=== PATIENT | male | born 1975 | race African-American/Black ===

== ENCOUNTER 2025-05-17 23:14 | Emergency (ER) | payer MEDICAID ==
[~2025-05-17] VITALS: Ht 175.3 cm; Wt 86.0 kg
[2025-05-17 23:36] VITALS: TEMP 36.7; O2SAT 99
[2025-05-18 00:33] LABS: CLARITY URINE CLOUDY (CLEAR); COLOR URINE YELLOW (YELLOW); GLUCOSE URINE NEGATIVE (NEGATIVE); KETONES URINE NEGATIVE (NEGATIVE); LEUKOCYTE ESTERASE URINE 2+ (NEGATIVE); NITRITE URINE NEGATIVE (NEGATIVE); OCCULT BLOOD URINE TRACE (NEGATIVE); PH URINE 5.5 (4.5-8.0); PROTEIN URINE NEGATIVE (NEGATIVE); SPECIFIC GRAVITY URINE 1.029 (1.005-1.030); UROBILINOGEN URINE 1.0 E.U./dL (0.2-1.0)
[2025-05-18] MEDS: AZITHROMYCIN 500 MG TABLET PO SCH (01:41)
[2025-05-18] MEDS: OXYCODONE HCL/ACETAMINOPHEN 5/325MG TABLET PO ONE (01:41)
[2025-05-18] MEDS ORDERED: DOXY100T2 MT (01:41)
[2025-05-18] MEDS: CEFTRIAXONE SODIUM 500MG VIAL IM ONE (01:41)
[2025-05-18] MEDS: IBUPROFEN 800MG TABLET PO ONE (01:42)
[2025-05-18 01:53] VITALS: BP 147/97; PULSE 99; RESP 20; O2SAT 100
[2025-05-18 03:36] LABS: WBC URINE 50-100 /hpf (0-2)
[2025-05-18 03:38] LABS: RBC URINE 0-2 /hpf (0-2)
[2025-05-18 03:39] LABS: BACTERIA URINE NONE SEEN; SQUAMOUS EPITHELIAL CELL URINE NONE SEEN /lpf (RARE/1+)
[2025-05-20 19:06] LABS: CHLAMYDIA TRACHOMATIS NAA Negative (Negative); NEISSERIA GONORRHOEAE NAA Positive (Negative)
== END 2025-05-18 01:53 | disposition home or self-care (01) ==
LOC: ER 23:14
DX: N50.89 Other specified disorders of the male genital organs (principal); I10 Essential (primary) hypertension
CPT/HCPCS: 99285; 93976; 76870; 87491; 87591; 81003; 87086; 96372; J0696